=== PATIENT | female | born 1975 | race Caucasian/White ===

== ENCOUNTER 2019-11-06 12:44 | Emergency (ER) | payer SELFPAY ==
[2019-11-06 12:47] VITALS: BP 124/94; PULSE 103; RESP 22; TEMP 37; O2SAT 98; BMI 30.9
--- NOTE | 2019-11-06 12:58 | ED_ITS ---
Entered by Gi Crespo, acting as scribe for Maggie Lim HPI - Chest Pain General: Chief Complaint: Chest Pain Stated Complaint: lower back pain, cp Time Seen by Provider: 11/06/19 12:58 Source: patient Mode of arrival: ambulatory Limitations: no limitations History of Present Illness: HPI narrative: 44 yo Female presents to ED with complaint of chest pain. Pt describes her pain as tightness. Pt states that she has had flu like symptoms for 4-5 days. Pt states that she has had a fever up to 104. Pt states that she had nausea and vomiting a couple of days ago and had sweating last night. Pt states that her chest pain just started today. MD complaint: chest pain Onset (ago): day(s) Timing of current episode: constant and still present Prior episodes: No Onset: during rest Pain location: substernal Pain radiation: none Quality: tightness Relieving factors: nothing Exacerbating factors: nothing Context: recent illness Associated symptoms: Reports dyspnea, fever(s), nausea and other (back pain); Deny abdominal pain, palpitations or syncope Treatment prior to arrival: none Risk Factors: Coronary artery disease risk factors: smoking history Review of Systems General: Reports: other (negative unless marked) Const: Reports: fever Eyes: Denies: change in vision or blurry vision ENMT: Denies: throat pain, painful swallowing, hoarseness, ear pain, ear discharge, Change in hearing or nasal discharge Card: Reports: chest pain; Denies: palpitations, irregular heart rhythm, syncope, pre-syncope, shortness of breath on exertion or shortness of breath when lying down Resp: Reports: shortness of breath, productive cough, wheezing and chest congestion GI: Reports: nausea; Denies: abdominal pain : Denies: flank pain, painful urination, urinary frequency, urinary urgency, decreased urine ouput, urinary incontinence or blood in urine Musc: Denies: neck pain, back pain, extremity pain, extremity swelling, joint pain, joint swelling, joint warmth or joint stiffness Skin/Breast: Denies: rash, skin tenderness or yellow skin Neuro: Denies: headache, numbness in extremities, weakness in extremities, changes in sensation, lack of coordination, difficulty walking, dizziness, vertigo or confusion Endo: Denies: excessive thirst, tired all the time, cold intolerance, excessive sweating, flushing or hot flashes Mark/Lymph: Denies: easy bruising, easy bleeding, petechiae or enlarged lymph nodes All/Imm: Denies: hives, throat swelling, tongue swelling, facial swelling or acute wheezing PFSH ED PFSH: Social History Smoking and tobacco status: current every day smoker Physical Exam Const: COMMON NORMALS: no apparent distress, oriented x3, no limitations, healthy appearing and well nourished EXAM LIMITATIONS: no altered mental status GENERAL APPEARANCE: cooperative, well kempt and well developed ORIENTATION/CONSCIOUSNESS: Yes awake HENMT: COMMON NORMALS: normocephalic, head/scalp atraumatic, hearing grossly normal bilaterally, external ears normal, EAC's normal, external nose normal and moist oral mucous membranes HEAD & SCALP: normal to inspection, normocephalic and atraumatic FACE & SINUS: normal facial exam and face symmetric NOSE: external nose normal and nares normal EXTERNAL EAR: Yes external ears normal EXTERNAL AUDITORY CANAL: EAC's normal MOUTH: oral and palatal mucosa normal and tongue normal Eye: COMMON NORMALS: PERRL, EOMs intact bilaterally, conjunctivae normal and no scleral icterus GENERAL EYE: normal appearance of both eyes and normal light reflex CONJUNCTIVA: Yes conjunctivae normal SCLERA: sclerae normal CORNEA: Yes corneas normal PUPIL: Yes PERRL DIRECT OPHTHALMOSCOPY: Yes normal light reflex Neck/C-Spine: COMMON NORMALS: full ROM, no lymphadenopathy, supple, no meningeal signs and no JVD GENERAL: Yes normal visual inspection and Yes trachea midline CERVICAL SPINE: Yes cervical ROM normal Chest: COMMONS NORMALS: inspection of chest normal and palpation of chest normal Resp: COMMON NORMALS: normal respiratory effort, no retractions and no use of accessory muscles; negative for clear to auscultation bilaterally EFFORT & INSPECTION: Yes able to speak in complete sentences AUSCULTATION: not clear to auscultation bilaterally and wheezes Cardio: COMMON NORMALS: no JVD, regular rate, regular rhythm, S1 normal heart sound, S2 normal heart sound, no gallops, no clicks, no murmurs and no rub JUGULAR VENOUS DISTENTION: no JVD RATE: regular rate RHYTHM: regular rhythm HEART SOUNDS: S1 normal and S2 normal GI: COMMON NORMALS: soft to palpation, non-tender, no hepatosplenomegaly and no masses INSPECTION: Yes normal to inspection PALPATION: Yes soft and Yes no hepatosplenomegaly : COMMON NORMALS: Yes no CVA tenderness BLADDER/KIDNEY EXAM: Yes no CVA tenderness Back/Pelvis: COMMON NORMALS: no CVA tenderness, thoracic and lumbar spine normal to inspection, no thoracic nor lumbar tenderness and thoraco-lumbar ROM normal Extremity: COMMON NORMALS: normal to inspection, full ROM, normal capillary refill, no joint enlargement, no clubbing, cyanosis or edema and no calf tenderness Neuro: COMMON NORMALS: oriented x3, CN's II-XII intact bilaterally, moves all extremities, no focal motor deficits and no sensory deficits noted MENINGEAL SIGNS: Yes no meningeal signs Psych: COMMON NORMALS: mental status grossly normal, thought process normal, cooperative, affect normal, speech normal and activity/motor behavior normal APPEARANCE: Yes well kempt SPEECH: Yes normal speech THOUGHT PROCESS: normal thought process Skin: COMMON NORMALS: no rashes or lesions noted, skin turgor normal, no jaundice, no petechiae and no mottling GENERAL SKIN EXAM: no rashes or lesions noted and turgor normal Course Vital Signs: Vital signs: Vital Signs Temperature 98.6 F 11/06/19 12:47 Pulse Rate 90 11/06/19 15:58 Respiratory Rate 20 H 11/06/19 15:58 Blood Pressure 106/66 11/06/19 15:58 Pulse Oximetry 96 11/06/19 15:58 MDM - Chest Pain MDM Narrative: Medical decision making narrative: Ms. Colby is a very nice 44-year-old female who comes in with flulike symptoms. She does test positive for influenza. She feels better after IV fluids here. She agrees to go home and take Tamiflu and Tessalon for her cough. She agrees to return to the hospital should her symptoms change or worsen. At this time she appears well-hydrated and I think she is safe for discharge. Lab Data: Attestation: I reviewed the patient's lab results. Labs: Lab Results 11/06/19 11/06/19 11/06/19 Range/Units 13:00 13:22 13:22 WBC 4.6 (4.0-10.0) 10^3/ uL RBC 5.12 (4.1-5.3) 10^6/u L Hgb 13.5 (11.5-15.3) g/dL Hct 44.9 (37.0-47.0) % MCV 87.7 (81-99) fL MCH 26.4 L (28.0-34.0) pg MCHC 30.1 (30.0-36.0) g/dL RDW 15.3 H (12.1-15.1) % Plt Count 183 (130-400) 10^3/c mm MPV 11.1 H (7.4-10.4) fL Neut % (Auto) 58.4 % Lymph % (Auto) 35.8 % Nobles % (Auto) 5.2 % Eos % (Auto) 0.0 % Baso % (Auto) 0.4 % Neut # (Auto) 2.7 (1.8-7.7) 10^3/u L Lymph # (Auto) 1.7 (0.8-4.8) 10^3/u L Nobles # (Auto) 0.2 (0.2-0.9) 10^3/u L Eos # (Auto) 0.0 (0.0-0.8) 10^3/u L Baso # (Auto) 0.0 (0.0-0.1) 10^3/u L Nucleated RBC % (a uto) 0 % Nucleated RBCs # 0.0 /100WBC PT 12.30 (10.5-13.3) SECO NDS INR 0.89 (0.8-1.2) Sodium (136-145) mmol/L Potassium (3.5-5.1) mmol/L Chloride (98-107) mmol/L Carbon Dioxide (22-29) mmol/L Anion Gap (5-19) BUN (6-20) mg/dL Creatinine (0.5-0.9) mg/dL GFR Calculation (90-130) mL/min Glucose (65-115) mg/dL Calculated Osmolal ity (285-295) mOsm/k g Calcium (8.5-10.5) mg/dL Magnesium (1.7-2.3) mg/dL Total Bilirubin (0.15-1.2) mg/dL AST (0-32) U/L ALT (0-33) U/L Alkaline Phosphata se (35-105) IU/L Troponin T Baselin e (0-10) ng/mL Troponin T 120 Min [place] (0-10) ng/mL Delta Troponin T (0-10) ABS# NT-Pro-B Natriuret Pep Total Protein (6.6-8.7) g/dL Albumin (3.5-5.2) g/dL Globulin (1.3-4.6) g/dL Lipase (13-60) U/L Influenza Type A A g Negative (Negative) POC Influenza B Ag Positive H (Negative) 11/06/19 11/06/19 11/06/19 Range/Units 13:22 13:22 15:24 WBC (4.0-10.0) 10^3/ uL RBC (4.1-5.3) 10^6/u L Hgb (11.5-15.3) g/dL Hct (37.0-47.0) % MCV (81-99) fL MCH (28.0-34.0) pg MCHC (30.0-36.0) g/dL RDW (12.1-15.1) % Plt Count (130-400) 10^3/c mm MPV (7.4-10.4) fL Neut % (Auto) % Lymph % (Auto) % Nobles % (Auto) % Eos % (Auto) % Baso % (Auto) % Neut # (Auto) (1.8-7.7) 10^3/u L Lymph # (Auto) (0.8-4.8) 10^3/u L Nobles # (Auto) (0.2-0.9) 10^3/u L Eos # (Auto) (0.0-0.8) 10^3/u L Baso # (Auto) (0.0-0.1) 10^3/u L Nucleated RBC % (a uto) % Nucleated RBCs # /100WBC PT (10.5-13.3) SECO NDS INR (0.8-1.2) Sodium 133 L (136-145) mmol/L Potassium 3.9 (3.5-5.1) mmol/L Chloride 99 (98-107) mmol/L Carbon Dioxide 21 L (22-29) mmol/L Anion Gap 16.9 (5-19) BUN 9 (6-20) mg/dL Creatinine 1.0 H (0.5-0.9) mg/dL GFR Calculation 59.7 L (90-130) mL/min Glucose 106 (65-115) mg/dL Calculated Osmolal ity 272 L (285-295) mOsm/k g Calcium 9.0 (8.5-10.5) mg/dL Magnesium 1.7 (1.7-2.3) mg/dL Total Bilirubin 0.2 (0.15-1.2) mg/dL AST 81 H (0-32) U/L ALT 63 H (0-33) U/L Alkaline Phosphata se 73 (35-105) IU/L Troponin T Baselin e 6 (0-10) ng/mL Troponin T 120 Min [place] 6.00 (0-10) ng/mL Delta Troponin T 0 (0-10) ABS# NT-Pro-B Natriuret Pep Cancelled Total Protein 7.3 (6.6-8.7) g/dL Albumin 3.6 (3.5-5.2) g/dL Globulin 3.7 (1.3-4.6) g/dL Lipase 63 H (13-60) U/L Influenza Type A A g (Negative) POC Influenza B Ag (Negative) 11/06/19 Range/Units 15:24 WBC (4.0-10.0) 10^3/ uL RBC (4.1-5.3) 10^6/u L Hgb (11.5-15.3) g/dL Hct (37.0-47.0) % MCV (81-99) fL MCH (28.0-34.0) pg MCHC (30.0-36.0) g/dL RDW (12.1-15.1) % Plt Count (130-400) 10^3/c mm MPV (7.4-10.4) fL Neut % (Auto) % Lymph % (Auto) % Nobles % (Auto) % Eos % (Auto) % Baso % (Auto) % Neut # (Auto) (1.8-7.7) 10^3/u L Lymph # (Auto) (0.8-4.8) 10^3/u L Nobles # (Auto) (0.2-0.9) 10^3/u L Eos # (Auto) (0.0-0.8) 10^3/u L Baso # (Auto) (0.0-0.1) 10^3/u L Nucleated RBC % (a uto) % Nucleated RBCs # /100WBC PT (10.5-13.3) SECO NDS INR (0.8-1.2) Sodium (136-145) mmol/L Potassium (3.5-5.1) mmol/L Chloride (98-107) mmol/L Carbon Dioxide (22-29) mmol/L Anion Gap (5-19) BUN (6-20) mg/dL Creatinine (0.5-0.9) mg/dL GFR Calculation (90-130) mL/min Glucose (65-115) mg/dL Calculated Osmolal ity (285-295) mOsm/k g Calcium (8.5-10.5) mg/dL Magnesium (1.7-2.3) mg/dL Total Bilirubin (0.15-1.2) mg/dL AST (0-32) U/L ALT (0-33) U/L Alkaline Phosphata se (35-105) IU/L Troponin T Baselin e (0-10) ng/mL Troponin T 120 Min [place] (0-10) ng/mL Delta Troponin T (0-10) ABS# NT-Pro-B Natriuret Pep 9 Total Protein (6.6-8.7) g/dL Albumin (3.5-5.2) g/dL Globulin (1.3-4.6) g/dL Lipase (13-60) U/L Influenza Type A A g (Negative) POC Influenza B Ag (Negative) Imaging Data^: CXR: Radiologist's impression: [address] [address] XRay Report Signed Patient: Anastasia Colby #: [id number] : 1975Acct#:[id number] Age/Sex: 44 / FADM Date: 11/06/19 Loc: ERRoom/Bed: Attending Dr: Ordering Provider/Ordering MD: Maggie Lim DO Date of Service: 11/06/19 Procedure(s): XR chest 1V portable [id number] Accession Number(s): [id number] Report Number: [id number] WS: [id number] Portable AP upright chest, 11/06/2019 Clinical Data: cough Comparison: None. Findings: No nodules, masses or effusions are seen. The heart is normal. The pulmonary vascularity is not increased. No pneumonia or pneumothorax is seen. Monitor leads are on the chest wall. XR/XR chest 1V portable [id number] Impression: Negative chest. Dictated By:Tari Gomez MD Signed By:Tari Gomez MDSigned Date/Time:11/06/191434 DD/ 1434 EKG Data^: EKG 1: Attestation: I personally reviewed and interpreted this EKG as follows: EKG interpretation date: 11/06/19 EKG interpretation time: 12:53 Interpretation: Normal sinus rhythm at 101 beats a minute, short OR interval, normal axis, no blocks. No acute ST-T wave changes. Discharge Plan Discharge Patient Disposition: Home, Self-Care Clinical Impression: Influenza Condition: Stable Prescriptions: New Tessalon Perles 100 mg capsule 200 mg PO TID PRN (Reason: cough) Qty: 60 RF: 0 Tamiflu 75 mg capsule 75 mg PO DAILY 5 Days Qty: 10 RF: 0 Discharge Orders: Discharge Order (Routine); Ordered 11/06/19 Ordered By: Maggie Lim Referrals: Maira Martinez DO [Physician] - 4-7 days Discharge Diet: Advance as tolerated Discharge Activity: Increase activity as tolerated Patient Instructions: Influenza (ED) Activity Restrictions/Additional Instructions: Please return to the ER immediately for any of the signs or symptoms listed on your discharge instruction sheets, worsening/changing of your symptoms, you are not getting better as quickly as expected, or for ANY other cause or concerns. Stand Alone Forms: Work/School Release Discharge Date/Time: 11/06/19 15:58 Coding Level of Care Code ED Ore Dressing Engineer for Chg Fwd Exam Comprehensive The documentation recorded by the Cherie flores Carmen, accurately reflects the service I personally performed and the decisions made by Carina irving Eli N Nov 06, 2019 12:44
--- NOTE | 2019-11-06 13:01 | ECG_ITS ---
Measurements Intervals [place] Rate: 101 P: 36 WA: 93 QRS: 54 QRSD: 71 T: 75 QT: 319 QTc: 414 SINUS TACHYCARDIA WITH SHORT WA INTERVAL NONSPECIFIC ST & T-WAVE ABNORMALITY ABNORMAL RHYTHM ECG No previous ECG available for comparison Electronically Signed On 11-07-2019 9:01:04 CDT by Matt Ley M.D. [email or web address]
[2019-11-06] MEDS: ipratropium-albuterol 3 mL Neb 9 ML INHALATION (13:31)
[2019-11-06 13:33] VITALS: PULSE 98; RESP 20; O2SAT 96
[2019-11-06 13:38] LABS: Basophils % 0.4 %; Hematocrit 44.9 % (37.0-47.0); Hemoglobin 13.5 g/dL (11.5-15.3); Lymphocytes # 1.7 10^3/uL (0.8-4.8); Lymphocytes % 35.8 %; Mean Corpuscular HGB Conc 30.1 g/dL (30.0-36.0); Mean Corpuscular Hemoglobin 26.4 pg (28.0-34.0); Mean Corpuscular Volume 87.7 fL (81-99); Mean Platelet Volume 11.1 fL (7.4-10.4); Monocytes # 0.2 10^3/uL (0.2-0.9); Monocytes % 5.2 %; Neutrophils # 2.7 10^3/uL (1.8-7.7); Neutrophils % 58.4 %; Nucleated Red Blood Cells % 0 %; Platelet Count 183 10^3/cmm (130-400); Red Blood Count 5.12 10^6/uL (4.1-5.3); Red Cell Distribution Width 15.3 % (12.1-15.1); White Blood Count 4.6 10^3/uL (4.0-10.0)
[2019-11-06 13:45] LABS: INR 0.89 (0.8-1.2)
[2019-11-06 13:45] LABS: Influenza A by IFA Negative (Negative); Influenza B by IFA Positive (Negative)
[2019-11-06 13:48] VITALS: PULSE 104
[2019-11-06] MEDS: nitroglycerin 0.4 mg sublingual Tablet SUBLINGUAL ×2 (13:53→13:58)
[2019-11-06] MEDS: aspirin 325 mg Tablet PO (13:53)
[2019-11-06] MEDS: sodium chloride 0.9% 1,000 ML 100 ML IV (13:55)
[2019-11-06 14:03] LABS: Troponin(5th) Baseline 6 ng/mL (0-10)
[2019-11-06 14:04] LABS: Alanine Aminotransferase 63 U/L (0-33); Albumin Level 3.6 g/dL (3.5-5.2); Alkaline Phosphatase 73 IU/L (35-105); Anion Gap 16.9 (5-19); Aspartate Amino Transferase 81 U/L (0-32); Blood Urea Nitrogen 9 mg/dL (6-20); Carbon Dioxide 21 mmol/L (22-29); Chloride 99 mmol/L (98-107); Globulin 3.7 g/dL (1.3-4.6); Glomerular Filtration Rate 59.7 mL/min (90-130); Glucose 106 mg/dL (65-115); Lipase 63 U/L (13-60); Magnesium 1.7 mg/dL (1.7-2.3); Osmolality Calculated 272 mOsm/kg (285-295); Potassium 3.9 mmol/L (3.5-5.1); Sodium 133 mmol/L (136-145); Total Bilirubin 0.2 mg/dL (0.15-1.2); Total Protein 7.3 g/dL (6.6-8.7)
--- NOTE | 2019-11-06 14:21 | XR_ITS ---
WS: [id number] Portable AP upright chest, 11/06/2019 Clinical Data: cough Comparison: None. Findings: No nodules, masses or effusions are seen. The heart is normal. The pulmonary vascularity is not increased. No pneumonia or pneumothorax is seen. Monitor leads are on the chest wall. XR/XR chest 1V portable [id number] Impression: Negative chest.
[2019-11-06 15:58] VITALS: BP 106/66; PULSE 90; RESP 20; O2SAT 96
[2019-11-06 15:58] LABS: Troponin 5 2HR Delta 0 ABS# (0-10)
[2019-11-06 16:26] LABS: NT Pro B Type Natriuretic Pept 9 pg/mL (0-125)
== END 2019-11-06 15:58 | disposition home or self-care (01) ==
PROVIDERS: Emergency Provider Emergency Medicine
DX: J11.1 Influenza due to unidentified influenza virus with other respiratory manifestations (principal); F17.200 Nicotine dependence, unspecified, uncomplicated
CPT/HCPCS: 12345; 36415; 71045; 80053; 83690; 83735; 83880; 84484; 85025; 85610; 87804; 93005; 94640; 96361; 96374; 99282; 99284; J0131; J7030